=== PATIENT | female | born 1990 | race Caucasian/White ===

== ENCOUNTER 2016-10-26 21:08 | Emergency (ER) | payer MEDICAID | END 2016-10-26 21:54 | disposition left against medical advice (07) | LOC: JP.ED 21:08 | DX: Z53.21 Procedure and treatment not carried out due to patient leaving prior to being seen by health care provider (principal) ==

== ENCOUNTER 2018-02-28 18:54 | Emergency (ER) | payer MEDICAID ==
[2018-02-28 19:15] VITALS: BP 103/73
--- NOTE | 2018-02-28 20:43 | EDM.PDOC ---
ED HPI GENERAL MEDICAL PROBLEM - General Chief Complaint: Upper Extremity Injury/Pain Stated Complaint: RIGHT HAND FINGERS SWELLING ANG GOING NUMB Time Seen by Provider: 02/28/18 20:37 Source of Information: Reports: Patient, Old Records, RN History Limitations: Reports: No Limitations - History of Present Illness INITIAL COMMENTS - FREE TEXT/NARRATIVE: 28 yo female was seen in the [facility] locally for a hand/wrist injury and had a splint applied. The splint came loose in the night last night and family reapplied it. She presents now due to swelling and numbness of some of her fingers. 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: Reports: Other (see below) (none) Right Hand Pain Score (Numeric/FACES): 8 - Related Data Allergies Allergy/AdvReac Type Severity Reaction Status Date / Time No Known Allergies Allergy Verified 02/28/18 19:40 Home Meds: Home Meds NK [No Known Home Meds] 09/27/15 [History] Past Medical History Genitourinary History: Reports: Other (See Below) Other Genitourinary History: cyat removed from bladder Psychiatric History: Reports: Anxiety, OCD - Infectious Disease History Infectious Disease History: Reports: Chicken Pox - Past Surgical History Female Surgical History: Reports: Section, Hysterectomy Social & Family History - Family History Family Medical History: Noncontributory - Tobacco Use Smoking Status *Q: Unknown Ever Smoked Second Hand Smoke Exposure: No - Caffeine Use Caffeine Use: Reports: Soda - Recreational Drug Use Recreational Drug Use: No Review of Systems - Review of Systems Review Of Systems: See Below Constitutional: Reports: No Symptoms Musculoskeletal: Reports: Other (fingers of splinted hand slightly swollen.) Skin: Reports: No Symptoms Neurological: Reports: Numbness (of finger tips on splinted hand) ED EXAM, GENERAL - Physical Exam Exam: See Below Exam Limited By: No Limitations General Appearance: Alert, WD/WN, No Apparent Distress Extremities: Other (by the time patient is seen her splint/YESICA have been off for over an hour and all her sx's for which she presented have resolved fully. ) Neurological: Alert, Oriented, CN II-XII Intact, Normal Cognition, No Motor/ Sensory Deficits Psychiatric: Normal Affect, Normal Mood Skin Exam: Warm, Dry, Intact, Normal Color, No Rash Lymphatic: No Adenopathy Course - Vital Signs Last Recorded V/S: Last Vital Signs Temp 37.1 C 02/28/18 19:42 Pulse 89 02/28/18 19:42 Resp 15 02/28/18 19:42 BP 103/73 02/28/18 19:42 Pulse Ox 97 02/28/18 19:42 Departure - Departure Time of Disposition: 20:42 Disposition: Home, Self-Care 01 Condition: Good Clinical Impression: Swelling of left hand - Discharge Information *PRESCRIPTION DRUG MONITORING PROGRAM REVIEWED*: Not Applicable *COPY OF PRESCRIPTION DRUG MONITORING REPORT IN PATIENT NATTY: Not Applicable Referrals: PCP,None [Primary Care Provider] - Additional Instructions: Loosen YESICA wrap as needed. Return to clinic as directed.
== END 2018-02-28 20:48 | disposition home or self-care (01) ==
LOC: JP.ED 18:54
DX: M79.89 Other specified soft tissue disorders (principal)
CPT/HCPCS: 99283

== ENCOUNTER 2022-12-22 14:04 | Emergency (ER) | payer MEDICAID ==
[2022-12-22] MEDS ORDERED: Acetaminophen 325 MG Tab PO ONE (14:39)
[2022-12-22 15:13] VITALS: BP 114/75; PULSE 87
== END 2022-12-22 16:17 | disposition home or self-care (01) ==
LOC: JP.ED 14:04
DX: S60.221A Contusion of right hand, initial encounter (principal); Z87.891 Personal history of nicotine dependence; Z98.890 Other specified postprocedural states; W20.8XXA Other cause of strike by thrown, projected or falling object, initial encounter
CPT/HCPCS: 73130; 99283; A9270